=== PATIENT | female | born 1980 | race Two or more races ===

== ENCOUNTER 2018-12-06 22:48 | Observation (INO) | payer BC, OTHER ==
[2018-12-07] MEDS ORDERED: Clindamycin 900 MG IVPREMIX(* 900 MG/50 ML SDV IV ONE ×2 (00:35→10:00)
[2018-12-07] MEDS ORDERED: NS 0.9% 1000 ML** 1,000 ML IV ONE (00:35)
--- NOTE | 2018-12-07 00:35 | ED ---
GI/ HPI - HPI Summary HPI Summary: Patient is a 38 y/o F presenting to ED with complaints of swelling and pain at vaginal opening. She reports that the pain at her vaginal opening onset around two weeks ago. Patient treated Sx with monistat initially, believing she had a yeast infection. Swelling of vaginal area along with an exacerbation of pain onset four days ago. Patient went to OBGYN at [facility] 12/06/18, patient was prescribed Cephalexin, 500 mg, four daily. She states that she has already taken three doses. However, Sx have remained unchanged. She additionally endorses BHAT, congestion and chills. Patient is on the last day of her menstrual cycle, notes that she is sexually active, and states that she is not on any control. On triage, pain is rated 6/10, nothing is noted to aggravate/alleviate Sx. Home medications and allergies are reviewed. - History of Current Complaint Chief Complaint: EDUrogenitalProblems Time Seen by Provider: 12/07/18 00:18 Stated Complaint: VAGINAL PAIN/SWELLING PER PT Hx Obtained From: Patient Onset/Duration: Started Days Ago - swelling four days ago, Started Weeks Ago - pain onset two weeks ago, Still Present, Worse Since - four days ago Timing: Constant, Lasting Days - swelling four days ago, Lasting Weeks - pain onset two weeks ago Severity: Moderate Current Severity: Moderate Pain Intensity: 6 Additional Location for Females: Vulva Associated Signs and Symptoms: Positive: Chills, Other: - BHAT, congestion Additional Signs & Symptoms: Positive: Other: - vulva pain and swelling Aggravating Factor(s): Nothing Alleviating Factor(s): Nothing - Allergy/Home Medications Allergies/Adverse Reactions: Allergies Allergy/AdvReac Type Severity Reaction Status Date / Time No Known Allergies Allergy Verified 12/06/18 23:00 PMH/Surg Hx/FS Hx/Imm Hx Sensory History: Denies: Hx Legally Blind, Hx Deafness Opthamlomology History: Denies: Hx Legally Blind EENT History: Denies: Hx Deafness Infectious Disease History: No Infectious Disease History: Denies: Traveled Outside the [place] in Last 30 Days - Family History Known Family History: Negative: Diabetes - Social History Alcohol Use: None Substance Use Type: Reports: None Smoking Status (MU): Never Smoked Tobacco Review of Systems Constitutional: Other - positive - congestion Positive: Chills Genitourinary: Other - positive - vulva swelling and pain Positive: Headache All Other Systems Reviewed And Are Negative: Yes Physical Exam - Summary Physical Exam Summary: VITAL SIGNS: Reviewed. GENERAL: Patient is a well-developed and nourished female who is lying comfortable in the stretcher. Patient is not in any acute respiratory distress. HEAD AND FACE: No signs of trauma. No ecchymosis, hematomas or skull depressions. No sinus tenderness. EYES: PERRLA, EOMI x 2, No injected conjunctiva, no nystagmus. EARS: Hearing grossly intact. Ear canals and tympanic membranes are within normal limits. MOUTH: Oropharynx within normal limits. NECK: Supple, trachea is midline, no adenopathy, no JVD, no carotid bruit, no c- spine tenderness, neck with full ROM CHEST: Symmetric, no tenderness at palpation LUNGS: Clear to auscultation bilaterally. No wheezing or crackles. CVS: Regular rate and rhythm, S1 and S2 present, no murmurs or gallops appreciated. ABDOMEN: Soft, non-tender. No signs of distention. No rebound no guarding, and no masses palpated. Bowel sounds are normal. EXAM: Done in presence of female nurse. Extensive swelling of labia majora. Swelling, warmness, redness and tenderness of vulva, right more than left with radiation to right, upper, medial thigh. EXTREMITIES: FROM in all major joints, no edema, no cyanosis or clubbing. NEURO: Alert and oriented x 3. No acute neurological deficits. Speech is normal and follows commands. SKIN: Dry and warm Triage Information Reviewed: Yes Vital Signs On Initial Exam: Initial Vitals Temp Pulse Resp BP Pulse Ox 99.8 F 83 16 134/69 99 12/06/18 22:56 12/06/18 22:56 12/06/18 22:56 12/06/18 22:56 12/06/18 22:56 Vital Signs Reviewed: Yes Diagnostics - Vital Signs Vital Signs Temp Pulse Resp BP Pulse Ox 12/06/18 22:56 99.8 F 83 16 134/69 99 - Laboratory Result Diagrams: 12/07/18 00:40 12/07/18 00:40 Lab Statement: Any lab studies that have been ordered have been reviewed, and results considered in the medical decision making process. GIGU Course/Dx - Course Course Of Treatment: Patient is a 38 y/o F presenting to ED with complaints of swelling and pain at vaginal opening. She reports that the pain at her vaginal opening onset around two weeks ago. Patient treated Sx with monistat initially, believing she had a yeast infection. Swelling of vaginal area along with an exacerbation of pain onset four days ago. Patient went to OBGYN at [facility] 12/06/18, patient was prescribed Cephalexin, 500 mg, four daily. She states that she has already taken three doses. However, Sx have remained unchanged. She additionally endorses BHAT, congestion and chills. Patient is on the last day of her menstrual cycle, notes that she is sexually active, and states that she is not on any control. EXAM: Done in presence of female nurse. Extensive swelling of labia majora. Swelling, warmness, redness and tenderness of vulva, right more than left with radiation to right, upper, medial thigh. Labs showed potassium 3.4, ionized calcium 1, CRP 19.79. During ED course, patient received fluids, toradol 15 mg IV and Clindamycin 900 mg in 50 mls @ 100 mls/hr IV ED ONCE. Patient's case was discussed with Dr. Ingram , Dr. Ingram admits the patient to her services. - Diagnoses Provider Diagnoses: Vulval cellulitis - Physician Notifications Discussed Care Of Patient With: Daysi Ingram Time Discussed With Above Provider: 01:31 Instructed by Provider To: Other - Patient's case was discussed with Dr. Ingram, Dr. Ingram admits the patient to her services. Discharge - Sign-Out/Discharge Documenting (check all that apply): Patient Departure - admit - Discharge Plan Condition: Stable Disposition: ADMITTED TO [facility] Referrals: No Primary Care Phys,NOPCP [Primary Care Provider] - - Attestation Statements Document Initiated by Scribe: Yes Documenting Scribe: GARETT GILBERT Provider For Whom Tayloribjina is Documenting (Include Credential): RHINA THURSTON MD Scribe Attestation: GARETT Oneill, scribed for RHINA THURSTON MD on 12/07/18 at 0327. Status of Scribe Document: Ready
[2018-12-07] MEDS ORDERED: Morphine 4 MG/ML VIAL (1 ml) 4 MG/ML VIAL IV ONE (00:36)
[2018-12-07] MEDS ORDERED: Ketorolac INJ* 30 MG/ML 1 ML VIAL IV PUSH ONE (00:36)
[2018-12-07] MEDS ORDERED: Metoclopramide IV* 5 MG/ML 2 ML VIAL IV SLOW PU ONE (00:37)
[2018-12-07 00:50] LABS: ABS Basophils 0.1 10^3/ul (0-0.2); ABS Eosinophils 0.1 10^3/ul (0-0.6); ABS Lymphocytes 1.6 10^3/ul (1.0-4.8); ABS Monocytes 0.6 10^3/ul (0-0.8); ABS Neutrophils 7.4 10^3/ul (1.5-7.7); Eosinophil % 0.9 %; Hematocrit 41 % (35-47); Hemoglobin 13.7 g/dL (12.0-16.0); Mean Corpuscular HGB Conc 34 g/dL (31-36); Mean Corpuscular Hemoglobin 31 pg (27-31); Mean Corpuscular Volume 93 fL (80-97); Mean Platelet Volume 8.8 fL (7.4-10.4); Platelet Count 299 10^3/uL (150-450); Red Blood Count 4.39 10^6 /uL (3.70-4.87); Red Cell Distribution Width 13 % (10-15); White Blood Count 9.7 10^3/uL (3.5-10.8)
[2018-12-07 01:09] LABS: Albumin 4.5 g/dL (3.2-5.2); Albumin/Globulin Ratio 1.7 (1-3); BUN/Creatinine Ratio 13.3 (8-20); C Reactive Protein 19.79 mg/L (<8.01); Calcium 9.5 mg/dL (8.6-10.3); EGFR African American 92.6 (>60); EGFR Non-African American 76.5 (>60); Globulin 2.7 g/dL (2-4); Potassium 3.4 mmol/L (3.5-5.0); Total Bilirubin 0.5 mg/dL (0.2-1.0); Total Protein 7.2 g/dL (6.4-8.9)
[2018-12-07] MEDS ORDERED: Potassium Chlor TAB* 20 MEQ TAB.ER PO ONE (01:35)
[2018-12-07] MEDS ORDERED: Morphine INJ* 2 MG/ML 1 ML SYRINGE (TWO MG - NEW SYRINGE VERSION) IV PRN (01:52)
[2018-12-07] MEDS ORDERED: NS 0.9% 1000 ML** 1,000 ML IV SCH (02:00)
[2018-12-07] MEDS ORDERED: Pneumococcal *Vac Polyvalent 0.5 ML VIAL IM ONE (09:00)
--- NOTE | 2018-12-07 09:14 | HP ---
H&P (Free Text) History and Physical: CC: vaginal pain HPI: pt says that about 2wks ago she developed pain and itching around the vaginal opening. She treated it with OTC monistat about 10 days ago and the itching resolved and the pain initially improved but then the right side started swelling. She saw Dr. Sanchez in [place] yesterday during the day and he prescribed Keflex. She took 3 doses but the swelling seemed to get worse and some redness extended to her right upper thigh so she came to the ED last night. She also states she felt some congestion and chills last night as well as a headache. Denies abnormal discharge since using the monistat. Her period started 4 days ago and is just ending. She is sexually active with one partner and reports last intercourse about 2wks ago but denies any trauma related to that. Also denies any other known trauma to the vulva. No h/o STIs other than HPV for which she is getting q6mo paps. ROS otherwise negative NKDA Medications: only keflex PMH: denies PSH: denies [place] hx: denies any pregnancies. They are considering trying to conceive later this year. Reports she has always had very irregular menstrual cycles except when on the pill. Currently using condoms for contraception. Soc Hx: denies tobacco, alcohol, illicit drug use Labs: essentially normal except a mildly elevated CRP Exam: Gen: NAD, lying comfortably in bed Abd: soft, NT Pelvic: right labia minora and majora both mildly swollen extending up to the clitoris. No significant erythema. No obvious trauma or lesion. Moderately tender to touch. Ext: no edema A: 38yo F with vulvar swelling extending to her upper thigh on admission. P: Admit to observation. Given 1 dose clindamycin. After rn staffing exam in the am, pt is feeling better so plan for d/c home. See d/c note.
--- NOTE | 2018-12-07 09:24 | DCNOTE ---
Hospital course: Admitted s/p receiving 1 dose IV clindamycin. This am she says the swelling is improved and the pain has lessened. Denies fever or chills now. Has a mild headache still. Will give 1 more dose of clindamycin prior to discharge. Exam: swelling much improved per pt. No significant erythema. Moderate swelling and tenderness of right labia. No imaging done. Lab studies as reported. No complications No procedures Assessment: 38yo F with right labia cellulitis responding to clindamycin. Plan: D/c to home. Will f/u with her regular legal support specialist, Dr. Sanchez, in [place] at the end of this week or beginning of next. Will plan to continue clindamycin PO x5 days. Many questions answered and plan discussed with pt.
--- NOTE | 2018-12-07 09:27 | DS ---
Admit dx: right vulvar swelling Discharge dx: right vulvar cellulitis Hospital course: received 2 doses of IV clindamycin with good improvement in her pain and swelling. No imaging or procedures. Condition: stable Disposition: home Discharge instructions printed and reviewed with pt. F/u with her primary senior mechanical estimator.
[2018-12-07 10:32] VITALS: BP 97/57
== END 2018-12-07 12:25 | disposition home or self-care (01) ==
LOC: ED 22:48 → MED 12-07 02:33
PROVIDERS: ADMIT Obstetrics & Gynecology; ATTEND Obstetrics & Gynecology
DX: N76.2 Acute vulvitis (principal); R51 Headache; N90.89 Other specified noninflammatory disorders of vulva and perineum
CPT/HCPCS: 36415; 80053; 82330; 83605; 85025; 86140; 87040; 90471; 90732; 96365; 96375; 99283; A9270-GY; G0009; G0378; J1885; J2270; J2765

== ENCOUNTER 2018-12-15 16:20 | Emergency (ER) | payer BC ==
--- OUTSIDE RECORDS SUMMARY | 2018-12-15 16:34 | XMS REPORT | Continuity of Care Document ---
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 Lavell Malcolm MD Primary Care Physician Unavailable Payers Date Identification Numbers Payment Provider Subscriber Effective: 2018 Policy Number: [id number] [employer] Spencer Julio PayID: [id number] [address] [place] [address] Social History Type Date Description Comments Sex Unknown Lives With Boyfriend Tobacco Use Start: Unknown Nonsmoker Smoking Status Reviewed: 12/13/18 Nonsmoker Allergies, Adverse Reactions, Alerts Description No Known Drug Allergies Medications Active Medications SIG Qnty Indications Ordering Provider Date Cephalexin take one by Unknown 12/11/2018 500mg Capsules mouth four times a day x 7 days Vital Signs Date Vital Result Comment 12/13/2018 11:32am BP Systolic 110 mmHg BP Diastolic 62 mmHg Heart Rate 78 /min Body Temperature 98.1 F Height 67 inches 5'7" Weight 112.00 lb BMI (Body Mass Index) 17.5 kg/m2 Results Test Date Facility Test Result H/L Range Note Laboratory test 12/13/2018 [facility] HIV 1&2 <pending> Negative finding (607)- - Antibody Screen (Fma) Plan of Treatment Future Appointment(s):01/19/2019 1:30 pm - Lavell Malcolm M.D. at [facility]12/13/2018 - Stacy Luis, PAZ11.4 Encounter for screening for human immunodeficiency virus [HiComments:Obtain labsN90.7 Vulvar cystComments: Continue antibiotics as directed. May take probiotics during this time to help replenish good bacteria in the gut. Continue to follow with Dr. Sanchez. Return in 1-2 months for complete physical examination with Dr. Medinaments: PCMHMedication Management Patient Understands medications he's taking? Yes Are there Barriers to Adherence? No Has the patient been asked about herbal supplements and therapies, and OTC meds? Yes Care Plan1. Patient has been queried about patient's goals/preferences and functional/ lifestyle goals at relevant visits. Yes If relevant, describe: N/A2. Treatment goals as explained to the patient: above3. Are there barriers to meeting treatment goals? No If Yes, please describe:4. Self-Management goals as described to the patient: Yes As always, we strongly encourage a healthy diet and making physical activity a part of your every day life. If you have questions about how or where to start, please contact the office.
--- OUTSIDE RECORDS SUMMARY | 2018-12-15 16:34 | XMS REPORT | Continuity of Care Document ---
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 Asia Quevedo RPAC Primary Care Physician Unavailable Payers Date Identification Numbers Payment Provider Subscriber Policy Number: [id number] [facility] Spencer Julio PayID: [id number] [address] [place] [address] Problems Active Problems Provider Date Acne Asia Quevedo RPAC Onset: 04/29/2018 Note: cystic, frontal area Venereal disease screening Madisyn Andujar CNM Onset: 06/10/2018 Gynecologic examination Madisyn Andujar CNM Onset: 06/10/2018 Social History Type Date Description Comments Sex Unknown Marital Status Single Diet Vegetarian 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 06/10/2018 Capsules for 10 days, then 1 cap po daily Sulfacetamide Thin layer to 170gm L70.9 Guillermo Cortés, 04/29/2018 - Sodium/Sulfur Cleanser face B M.D. 06/10/2018 10-5% Emulsion Vital Signs Date Vital Result Comment 12/03/2018 1:38pm BP Systolic Sitting Left Arm 100 mmHg BP Diastolic Sitting Left Arm 60 mmHg Body Temperature 98.6 F Heart Rate 74 /min Respiratory Rate 16 /min Height 69 inches 5'9" Weight 116.00 lb BMI (Body Mass Index) 17.1 kg/m2 BSA (Body Surface Area) 1.64 m2 [place] body weight in kilograms 66 kg O2 % BldC Oximetry 99 % Ra 06/10/2018 1:09pm BP Systolic 112 mmHg BP Diastolic 62 mmHg Body Temperature 98.1 F Heart Rate 66 /min Respiratory Rate 16 /min Height 69 inches 5'9" Weight 114.00 lb BMI (Body Mass Index) 16.8 kg/m2 BSA (Body Surface Area) 1.63 m2 [place] body weight in kilograms 66 kg O2 % BldC Oximetry 99 % 04/29/2018 10:36am BP Systolic 111 mmHg BP Diastolic 76 mmHg Body Temperature 96.3 F Heart Rate 84 /min Respiratory Rate 18 /min Height 69 inches 5'9" Weight 114.50 lb BMI (Body Mass Index) 16.9 kg/m2 BSA (Body Surface Area) 1.63 m2 [place] body weight in kilograms 66 kg O2 % BldC Oximetry 99 % Results Test Date Facility Test Result H/L Range Note Laboratory test 12/03/2018 [facility] Treponema <pending> finding [address] [place] [address] [place] [phone] Laboratory test 12/03/2018 [facility] Hepatitis C <pending> finding [address] Antibody [place], [place] [address] [phone] Urine Dipstick 12/03/2018 [facility] Ua Color yellow Yellow Ua Clarity clear Clear Ua Leuko negative Negative Ua Nitrite negative Negative Ua Urobilinogen 0.2 0.2 - 1.0 E.U./dL Ua Protein negative Negative Ua PH 7.0 6.5-7.5 Ua Blood 3+ High Negative Ua Specific [place] 1.010 1.010-1.030 Ua Ketones negative Negative Ua Bilirubin negative Negative Ua Glucose negative Negative Laboratory test 06/10/2018 [facility] Treponema Negative Negative 1, [address] [place] [address] [place] [phone] Chlmaydia/GC/Tr 06/10/2018 [facility] Chlamydia NEGATIVE Negative ichomonas PCR [address] [facility] trachomatis, [place] [address] PCR [phone] Neisseria gonorrhoeae, PCR NEGATIVE Negative 3 Trichomonas vaginalis PCR NEGATIVE Negative Affirm 06/10/2018 [facility] Trichomonas Negative [Negative] Vaginitis [address] [facility] [place] [address] [phone] Gardnerella vaginalis Negative [Negative] Abigail species Negative [Negative] 4 Ua RFX Micro & Culture 04/29/2018 [facility] Urine Color YELLOW Yellow 5 II [address] [place], [place] [id number] [phone] Urine Clarity CLEAR Clear Urine Glucose - Dipstick NEGATIVE mg/dL Negative Urine Bilirubin - Dipstick NEGATIVE Negative Urine Ketone NEGATIVE mg/dL Negative Urine Specific [place] <=1.005 Low 1.010-1.030 Urine Blood NEGATIVE Negative Urine PH 7.0 N 6.5-7.5 Urine Protein - Dipstick NEGATIVE mg/dL Negative Urine Urobilinogen - Dipstick 0.2 E.U./dL N 0.2-1.0 Urine Nitrite - Dipstick NEGATIVE Negative Urine Leuk Esterase SMALL Abnormal Negative Urine RBC NONE SEEN rbc/hpf 0-2 Urine WBC 0-2 wbc/hpf 0-7 Urine Epithelial Cells VERY FEW /lpf None Seen Source: URINE, CLEAN CAT <SEE NOTE> 6 Urine Dipstick 04/29/2018 [facility] Ua Color yellow Yellow Ua Clarity clear Clear Ua Leuko + Negative Ua Nitrite - Negative Ua Urobilinogen - Low 0.2 - 1.0 E.U./dL Ua Protein - Negative Ua PH 7 6.5-7.5 Ua Blood - Negative Ua Specific [place] 1.005 Low 1.010-1.030 Ua Ketones - Negative Ua Bilirubin - Negative Ua Glucose - Negative Comprehensive Metabolic 04/29/2018 [facility] Glucose 77 mg/dL N 74-106 [address] [place], [place] [id number] [phone] BUN 11 mg/dL N 7-18 Creatinine 1.0 mg/dL N 0.6-1.3 Glom Filtration Rate, Estimate >60 mL/min >60 If >60 mL/min >60 7 BUN/Creat 11.0 ratio Sodium 143 mmol/L N 136-145 Potassium 3.6 mmol/L N 3.5-5.1 Chloride 105 mmol/L N 98-107 Carbon Dioxide 30 mmol/L N 21-32 Anion Gap 8 mEq/L N 8-16 Calcium 8.8 mg/dL N 8.5-10.1 Total Protein 7.3 g/dL N 6.4-8.2 Albumin 4.3 g/dL N 3.4-5.0 Globulin 3.0 g/dL N 1.9-4.3 Alb/Glob 1.4 ratio Bilirubin,Total 0.4 mg/dL N 0.2-1.0 Sgot/Ast 16 U/L N 15-37 SGPT/Alt 23 U/L N 12-78 Alkaline Phosphatase 53 U/L N 45-117 CBC W/Automated Diff 04/29/2018 [facility] White Blood 5.5 K/uL N 3.1-10.[address] [place] [address] [phone] Red Blood Count 4.54 M/uL N 3.90-5.40 Hemoglobin 14.3 gm/dL N 11.6-15.8 Hematocrit 43.0 % N 36.0-46.1 Mean Cell Volume 94.7 fl N 80.9-99.0 Mean Corpuscular HGB 31.5 pg N 25.9-32.7 Mean Corpuscular HGB Conc 33.3 g/dL N 30.8-34.3 Platelet Count 225 K/uL N 155-360 Red Cell Distri Width SD 43.0 fl N 3-47 Red Cell Distri Width %CV 12.7 % N 11.7-14.4 Mean Platelet Volume 12.0 fL N 8.9-12.4 Neut% 76.0 % High 40.4-72.8 Lymph % 16.2 % Low 20.0-42.0 [place] % 5.6 % N 4.3-13.2 Eo% 1.3 % N 0.0-6.6 Bas% 0.9 % N 0.0-1.1 Neut# 4.17 K/uL N 1.8-7.0 Lymph # 0.89 K/uL Low 1.0-4.0 [place] # 0.31 K/uL N 0.3-0.9 Eos # 0.07 K/uL N 0.0-0.5 Baso # 0.05 K/uL N 0.0-0.1 Laboratory 04/29/2018 [facility] Vitamin 37.8 ng/mL 30.0-100.0 8 test finding [address],25[place] [address] [phone] Hepatitis 04/29/2018 [facility] Hepatitis A Negative Negative Evaluation [address] [place] [address] [phone] HBsAg Screen [Ref Lab] Negative Negative Hepatitis B Core IgM Negative Negative HCV Signal/Cutoff ratio < 0.1 s/corat 0.0-0.9 9 HIV Screen 04/29/2018 [facility] HIV Screen 4th Non Reactive Non Reactive [address] [place] [place] [address] [phone] 1 Z11.3 Z11.3 Z01.419 2 Performed at: [address] [id number] Finished Yarn Examiner: Jordyn Redmond MD, Phone: [phone] A negative result for either C. trachomatis and/or N. gonorrhoeae does not preclued an infection because results are dependent on adequate specimen collection, absence of inhibitors, and sufficient DNA to be detected. 4 Method: BD Affirm VPIII DNA Probe Assay 5 L70.9,R82.90 6 URINE, CLEAN CATCH 7 Note: Persistent reduction for 3 months or more in an eGFR <60 mL/min/1.73 m2 defines CKD. Patients with eGFR values >/=60 mL/min/1.73 m2 may also have CKD if evidence of persistent proteinuria is present. The original MDRD equation for estimated GFR is not valid for patients less than 18 years of age. Additional information may be found at www.kdoqi.org. 8 Vitamin D deficiency has been defined by the [place] [employer] and an Endocrine Society practice guideline as a level of serum 25-OH vitamin D less than 20 ng/mL (1,2). The Endocrine Society went on to further define vitamin D insufficiency as a level between 21 and 29 ng/mL (2). 1. IOM ([place] [employer]). 2010. Dietary reference intakes for calcium and D. [place]: The National Academies Press. 2. Darline MF, Debbie NC, Dk BHAT, et al. Evaluation, treatment, and prevention of vitamin D deficiency: an Endocrine Society clinical practice guideline. JCEM. 2010; 96(7):1911-30. Performed at: [address] [id number] Finished Yarn Examiner: Muna Oviedo MD, Phone: [phone] INFCE Result Units: s/co ratio Negative: < 0.8 Indeterminate: 0.8 - 0.9 Positive: > 0.9 The CDC recommends that a positive HCV antibody result be followed up with a HCV Nucleic Acid Amplification test ([id number]). Performed at: [address] [id number] Finished Yarn Examiner: Muna Oviedo MD, Phone: [phone] Performed at: [address] [id number] Finished Yarn Examiner: Muna Oviedo MD, Phone: [phone] Plan of Treatment 12/03/2018 - Brittany Garvin, PAN76.0 Acute vaginitisComments:No significant discharge noted on exam, other than bleeding from normal menses.Likely related appropriately OTC.Will check cultures and labs as notedFollow up:Follow-up as evjeuuQ69.3 Encounter for screening for infections with a predominantlyComments:Pt interested in screening for STDs. Has been in monogamous relationship for at least 6 months. Check labs as noted.Consent form obtained
[2018-12-15 16:37] VITALS: BP 102/67
--- NOTE | 2018-12-15 16:52 | UC ---
Skin Complaint HPI - HPI Summary HPI Summary: 38 yo female with tick left inner leg x 2 days so small she did not realize it was a tick until today on kelfex for vulvar infection - History of Current Complaint Chief Complaint: UCSkin Stated Complaint: TICK BITE Hx Obtained From: Patient Hx Last Menstrual Period: 12/08/18 Onset/Duration: Sudden Onset, Lasting Days Timing: Constant Onset Severity: Mild Current Severity: Mild Pain Intensity: 0 Pain Scale Used: 0-10 Numeric Location: Other - left inner thigh Aggravating Factor(s): Nothing Alleviating Factor(s): Nothing Related History: Insect Bite/Sting - Allergy/Home Medications Allergies/Adverse Reactions: Allergies Allergy/AdvReac Type Severity Reaction Status Date / Time No Known Allergies Allergy Verified 12/15/18 16:32 Home Medications: Home Medications Cephalexin CAP* [Keflex CAP*] 500 mg PO QID 12/15/18 [History Confirmed 12/15/18 ] PMH/Surg Hx/FS Hx/Imm Hx Previously Healthy: Yes - Surgical History Surgical History: None - Family History Known Family History: Negative: Diabetes - Social History Alcohol Use: None Substance Use Type: None Smoking Status (MU): Never Smoked Tobacco - Immunization History Most Recent Pneumonia Vaccination: 12/07/18 Review of Systems All Other Systems Reviewed And Are Negative: Yes Constitutional: Positive: Negative Skin: Positive: Negative Eyes: Positive: Negative ENT: Positive: Negative Respiratory: Positive: Negative Cardiovascular: Positive: Negative Gastrointestinal: Positive: Negative Genitourinary: Positive: Negative Motor: Positive: Negative Neurovascular: Positive: Negative Musculoskeletal: Positive: Negative Neurological: Positive: Negative Psychological: Positive: Negative Physical Exam Triage Information Reviewed: Yes Appearance: Well-Appearing, No Pain Distress, Well-Nourished Vital Signs: Initial Vital Signs Temp 98.4 F 12/15/18 16:33 Pulse 72 12/15/18 16:33 Resp 16 12/15/18 16:33 BP 102/67 12/15/18 16:33 Pulse Ox 100 12/15/18 16:33 Vital Signs Reviewed: Yes Eyes: Positive: Conjunctiva Clear ENT: Positive: Hearing grossly normal. Negative: Nasal congestion, Nasal drainage, Trismus, Muffled voice, Hoarse voice Neck: Positive: Supple, Nontender, No Lymphadenopathy Respiratory: Positive: Lungs clear, Normal breath sounds, No respiratory distress, No accessory muscle use Cardiovascular: Positive: RRR, No Murmur, Pulses Normal Musculoskeletal: Positive: ROM Intact, No Edema Neurological: Positive: Alert Psychological Exam: Normal Skin Exam: Other - tick Course/Dx - Course Course Of Treatment: tick removed in toto with tick twister - Diagnoses Provider Diagnosis: Tick bite of left thigh Discharge - Sign-Out/Discharge Documenting (check all that apply): Patient Departure All imaging exams completed and their final reports reviewed: No Studies - Discharge Plan Condition: Stable Disposition: HOME Prescriptions: DOXYcycline CAP(*) [DOXYcycline 100MG CAP(*)] 200 mg PO ONCE #2 cap Patient Education Materials: Tick Bite (ED) Referrals: Lavell Malcolm MD [Primary Care Provider] - Additional Instructions: call for any questions return for any problems - Billing Disposition and Condition Condition: STABLE Disposition: Home
== END 2018-12-15 17:09 | disposition home or self-care (01) ==
LOC: UCCORT 16:20
DX: T63.481A Toxic effect of venom of other arthropod, accidental (unintentional), initial encounter (principal)
CPT/HCPCS: 99212; G0463